=== PATIENT | male | born 1980 | race Caucasian/White ===

== ENCOUNTER 2024-02-16 08:32 | Inpatient (IN) | payer BC ==
[2024-02-16] VITALS (8 sets, daily range): BP systolic 141–196; BP diastolic 79–109; PULSE 60–81; RESP 18–19; TEMP 97.1–98.6; O2SAT 95–100
[~2024-02-16] VITALS: Ht 177.8 cm; Wt 103.4 kg
[2024-02-16 09:03] LABS: BASOPHILS % 0.6 % (0.0-1.0); EOSINOPHILS % 0.2 % (0.0-6.0); HEMATOCRIT 42.7 % (38.2-49.6); HEMOGLOBIN 15.5 g/dL (14.0-18.0); LYMPHOCYTES # (AUTO) 1.6 (1.0-3.2); LYMPHOCYTES % 24.2 % (18.0-39.1); MEAN CORPUSCULAR HEMOGLOBIN 32.6 pg (28-32); MEAN CORPUSCULAR HGB CONC 36.3 g/dL (31-35); MEAN CORPUSCULAR VOLUME 89.9 fL (81-99); MONOCYTES # (AUTO) 0.4 (0.2-0.8); MONOCYTES % 6.7 % (4.4-11.3); NEUTROPHILS # (AUTO) 4.5 (2.1-6.9); PLATELET COUNT 166 x10e3/uL (140-360); RED BLOOD COUNT 4.75 x10e6/uL (4.3-5.7); RED CELL DISTRIBUTION WIDTH 15.9 % (11.7-14.4)
[2024-02-16 09:09] LABS: INR 0.88; PROTHROMBIN TIME 12.4 seconds (11.9-14.5)
[2024-02-16 09:10] LABS: PARTIAL THROMBOPLASTIN TIME 45.4 seconds (23.8-35.5)
[2024-02-16 09:13] LABS: BILIRUBIN,URINE NEGATIVE (NEGATIVE); CLARITY,URINE CLEAR (CLEAR); COLOR,URINE YELLOW (YELLOW); GLUCOSE, URINE NEGATIVE (NEGATIVE); KETONES,URINE NEGATIVE (NEGATIVE); LEUKOCYTE ESTERASE ,URINE NEGATIVE (NEGATIVE); NITRITE,URINE NEGATIVE (NEGATIVE); PH,URINE 6.5 (5 - 7); PROTEIN,URINE DIPSTICK 1+ (NEGATIVE); URINE UROBILINOGEN 0.2 mg/dL (0.2 - 1)
[2024-02-16 09:14] LABS: AMPHETAMINES SCREEN,URINE NEGATIVE (NEGATIVE); BACTERIA,URINE FEW /HPF; BENZODIAZEPINES SCREEN,URINE NEGATIVE (NEGATIVE); CANNABINOIDS SCREEN,URINE NEGATIVE (NEGATIVE); EPITHELIAL CELLS,URINE FEW /LPF; METHADONE SCREEN, URINE NEGATIVE (NEGATIVE); OPIATES SCREEN,URINE NEGATIVE (NEGATIVE); PHENCYCLIDINE SCREEN,URINE NEGATIVE (NEGATIVE); RBC,URINE 0-5 /HPF (0-5); WBC,URINE (MAN) 0-5 /HPF (0-5)
[2024-02-16 09:15] LABS: ALBUMIN/GLOBULIN RATIO 1.4 (0.8-2.0); ANION GAP 20.9 mmol/L (8-16); CALCIUM 8.7 mg/dL (8.4-10.2); CREATININE, SERUM 1.04 mg/dL (0.72-1.25); MAGNESIUM 1.5 MG/DL (1.3-2.1); POTASSIUM 3.9 mmol/L (3.5-5.1); TOTAL PROTEIN 6.9 g/dL (6.5-8.1)
[2024-02-16 09:18] LABS: ACETAMINOPHEN < 3.0 ug/mL (10-30); ETHANOL < 10.0 mg/dL (0.0-10.0); SALICYLATE < 5.0 mg/dL (0-30)
[2024-02-16 09:21] LABS: TROPONIN I 0.054 ng/mL (0-0.300)
[2024-02-16] MEDS: SODIUM CHLORIDE 0.9% 1000ML 1,000 ML IV STA (09:23)
[2024-02-16] MEDS: ONDANSETRON HCL INJ 2MG/ML 2ML 2 MG/ML VIAL IV STA (09:23)
[2024-02-16] MEDS: CLONIDINE HCL 0.2 MG TAB PO ONE (09:23)
[2024-02-16] MEDS: THIAMINE HCL INJ 100 MG/ML 2ML VIAL IV ONE (09:27)
[2024-02-16] MEDS: LORAZEPAM INJ 2 MG/ML VIAL IV ONE (09:35)
[2024-02-16] MEDS ORDERED: IOPAMIDOL 370 MG/ML 100 ML INFUS..BTL INJ ONE (09:58)
[2024-02-16] MEDS ORDERED: ONDANSETRON HCL INJ 2MG/ML 2ML 2 MG/ML VIAL IV PRN (11:00)
[2024-02-16] MEDS: HYDRALAZINE HCL 20 MG/ML VIAL IV STA (11:02)
[2024-02-16] MEDS ORDERED: LORAZEPAM INJ 2 MG/ML VIAL IV PRN (11:15)
[2024-02-16] MEDS: FAMOTIDINE 20 MG/2 ML VIAL IV SCH (11:25)
[2024-02-16] MEDS: HYDRALAZINE HCL 20 MG/ML VIAL IV PRN (11:45)
[2024-02-16] MEDS: CHLORDIAZEPOXIDE HCL 25 MG CAP PO SCH (11:45)
[2024-02-16] MEDS: NICOTINE 14 MG/EA PATCH TOP ONE (17:19)
[2024-02-16] MEDS: METOPROLOL TARTRATE 25 MG TAB PO SCH (17:21)
[2024-02-16] MEDS: NICOTINE 21 MG/EA PATCH ONE (20:55)
[2024-02-17] VITALS (7 sets, daily range): BP systolic 157–178; BP diastolic 88–123; PULSE 55–82; RESP 18–20; TEMP 97.5–98.6; O2SAT 99–100
[2024-02-17] MEDS ORDERED: ZOLPIDEM TARTRATE 10 MG TAB PO PRN (06:30)
[2024-02-17 07:43] LABS: BASOPHILS % 0.6 % (0.0-1.0); EOSINOPHILS % 0.4 % (0.0-6.0); HEMATOCRIT 37.1 % (38.2-49.6); LYMPHOCYTES # (AUTO) 1.9 (1.0-3.2); LYMPHOCYTES % 34.4 % (18.0-39.1); MEAN CORPUSCULAR HEMOGLOBIN 32.7 pg (28-32); MEAN CORPUSCULAR VOLUME 93.2 fL (81-99); MONOCYTES # (AUTO) 0.4 (0.2-0.8); MONOCYTES % 6.8 % (4.4-11.3); NEUTROPHILS # (AUTO) 3.1 (2.1-6.9); NEUTROPHILS % 57.4 % (38.7-80.0); PLATELET COUNT 148 x10e3/uL (140-360); RED BLOOD COUNT 3.98 x10e6/uL (4.3-5.7); RED CELL DISTRIBUTION WIDTH 16.7 % (11.7-14.4); WHITE BLOOD COUNT 5.44 x10e3/uL (4.8-10.8)
[2024-02-17 08:17] LABS: TROPONIN I 0.069 ng/mL (0-0.300)
[2024-02-17 08:41] LABS: ALBUMIN 3.3 g/dL (3.5-5.0); ALBUMIN/GLOBULIN RATIO 1.4 (0.8-2.0); ANION GAP 15.3 mmol/L (8-16); CALCIUM 8.7 mg/dL (8.4-10.2); CHOL/HDL RATIO 10.1 (3.9-4.7); CREATININE, SERUM 0.8 mg/dL (0.72-1.25); POTASSIUM 4.3 mmol/L (3.5-5.1); TOTAL PROTEIN 5.6 g/dL (6.5-8.1)
[2024-02-17] MEDS: AMLODIPINE BESYLATE 10 MG TAB PO SCH (10:27)
[2024-02-17] MEDS: NICOTINE 14 MG/EA PATCH TOP SCH (10:28)
[2024-02-17] MEDS ORDERED: PRILOSEC OTC20 MG PO (10:35)
[2024-02-18] VITALS (8 sets, daily range): BP systolic 137–175; BP diastolic 81–110; PULSE 55–76; RESP 18–20; TEMP 97.6–98.4; O2SAT 97–100
[2024-02-18 05:11] LABS: BASOPHILS % 0.4 % (0.0-1.0); EOSINOPHILS % 0.4 % (0.0-6.0); HEMATOCRIT 39.2 % (38.2-49.6); HEMOGLOBIN 13.2 g/dL (14.0-18.0); LYMPHOCYTES # (AUTO) 1.6 (1.0-3.2); LYMPHOCYTES % 34.3 % (18.0-39.1); MEAN CORPUSCULAR HEMOGLOBIN 32.1 pg (28-32); MEAN CORPUSCULAR HGB CONC 33.7 g/dL (31-35); MEAN CORPUSCULAR VOLUME 95.4 fL (81-99); MONOCYTES # (AUTO) 0.3 (0.2-0.8); MONOCYTES % 7.2 % (4.4-11.3); NEUTROPHILS # (AUTO) 2.6 (2.1-6.9); NEUTROPHILS % 57.3 % (38.7-80.0); PLATELET COUNT 144 x10e3/uL (140-360); RED BLOOD COUNT 4.11 x10e6/uL (4.3-5.7); RED CELL DISTRIBUTION WIDTH 15.6 % (11.7-14.4)
[2024-02-18 05:32] LABS: ALBUMIN 3.3 g/dL (3.5-5.0); ALBUMIN/GLOBULIN RATIO 1.5 (0.8-2.0); ANION GAP 13.5 mmol/L (8-16); BILIRUBIN,TOTAL 1.8 mg/dL (0.2-1.2); CALCIUM 8.7 mg/dL (8.4-10.2); CREATININE, SERUM 0.84 mg/dL (0.72-1.25); POTASSIUM 4.5 mmol/L (3.5-5.1); TOTAL PROTEIN 5.5 g/dL (6.5-8.1)
[2024-02-18 06:05] LABS: TROPONIN I 0.068 ng/mL (0-0.300)
[2024-02-18] MEDS: IBUPROFEN 200 MG TAB PO PRN (09:39)
[2024-02-18] MEDS ORDERED: ONDANSETRON HCL 4 MG ORAL DISINTEGRATING TAB PO PRN (11:00)
[2024-02-19] VITALS: BP 147/76; PULSE 65; RESP 19; TEMP 97.5; O2SAT 97
[2024-02-19 06:14] VITALS: BP 157/97; PULSE 64; RESP 19; TEMP 97.3; O2SAT 99
[2024-02-19 08:30] VITALS: BP 157/97; PULSE 64; RESP 19; TEMP 97.3; O2SAT 99
[2024-02-19 08:54] VITALS: BP 147/83; PULSE 71; RESP 19; TEMP 98.8; O2SAT 100
== END 2024-02-19 08:58 | disposition home or self-care (01) | DRG 305 ==
LOC: ER 08:43 → ERHOLD 10:51 → MED/SURG 11:31
PROVIDERS: ADMIT Internal Medicine; ATTEND Internal Medicine
DX: I16.0 Hypertensive urgency (principal); I50.32 Chronic diastolic (congestive) heart failure; K76.0 Fatty (change of) liver, not elsewhere classified; I11.0 Hypertensive heart disease with heart failure; D64.9 Anemia, unspecified; F10.10 Alcohol abuse, uncomplicated; E78.5 Hyperlipidemia, unspecified; K21.9 Gastro-esophageal reflux disease without esophagitis; R79.89 Other specified abnormal findings of blood chemistry; F41.9 Anxiety disorder, unspecified; F32.A Depression, unspecified; Z11.52 Encounter for screening for COVID-19; E66.9 Obesity, unspecified; Z68.32 Body mass index [BMI] 32.0-32.9, adult; Z91.141 Patient's other noncompliance with medication regimen due to financial hardship; F17.210 Nicotine dependence, cigarettes, uncomplicated
CPT/HCPCS: 0223U; 36415; 70450; 71045; 74177; 80053; 80061; 80307; 80320; 80329; 81001; 82550; 83735; 83880; 84484; 85025; 85610; 85730; 93005; 93306; 99284; J0360; J2060; J2405; J3411; J7030; Q9967

== ENCOUNTER 2024-07-08 02:22 | Inpatient (IN) | payer BC ==
[~2024-07-08] VITALS: Ht 177.8 cm; Wt 103.4 kg
[~2024-07-08 02:22] MED LIST: PRILOSEC OTC20 MG PO
[2024-07-08 02:55] VITALS: TEMP 99.3
[2024-07-08] MEDS: DIAZEPAM INJ 5 MG/ML 2 ML IV ONE (03:25)
[2024-07-08] MEDS: SODIUM CHLORIDE 0.9% 1000ML 1,000 ML IV STA ×2 (03:26)
[2024-07-08] MEDS: FAMOTIDINE 20 MG/2 ML VIAL IV STA (03:26)
[2024-07-08 03:48] LABS: BASOPHILS % 0.1 % (0.0-1.0); EOSINOPHILS # (AUTO) 0.1 (0.0-0.4); EOSINOPHILS % 0.6 % (0.0-6.0); HEMATOCRIT 35.6 % (38.2-49.6); LYMPHOCYTES # (AUTO) 0.9 (1.0-3.2); LYMPHOCYTES % 10.6 % (18.0-39.1); MEAN CORPUSCULAR HEMOGLOBIN 34.5 pg (28-32); MEAN CORPUSCULAR HGB CONC 36.5 g/dL (31-35); MEAN CORPUSCULAR VOLUME 94.4 fL (81-99); MONOCYTES # (AUTO) 0.7 (0.2-0.8); MONOCYTES % 8.1 % (4.4-11.3); NEUTROPHILS # (AUTO) 7.1 (2.1-6.9); NEUTROPHILS % 79.9 % (38.7-80.0); PLATELET COUNT 128 x10e3/uL (140-360); RED BLOOD COUNT 3.77 x10e6/uL (4.3-5.7); RED CELL DISTRIBUTION WIDTH 14.5 % (11.7-14.4); WHITE BLOOD COUNT 8.81 x10e3/uL (4.8-10.8)
[2024-07-08 04:00] LABS: ETHANOL 58.7 mg/dL (0.0-10.0)
[2024-07-08 04:01] LABS: ALBUMIN/GLOBULIN RATIO 0.8 (0.8-2.0); ANION GAP 19.8 mmol/L (8-16); BILIRUBIN,TOTAL 1.6 mg/dL (0.2-1.2); CALCIUM 8.6 mg/dL (8.4-10.2); CREATININE, SERUM 0.84 mg/dL (0.72-1.25); POTASSIUM 3.8 mmol/L (3.5-5.1); TOTAL PROTEIN 6.7 g/dL (6.5-8.1)
[2024-07-08 04:07] LABS: TROPONIN I 0.046 ng/mL (0-0.300)
[2024-07-08] MEDS ORDERED: SODIUM CHLORIDE 0.9% 100 ML ONE (04:23)
[2024-07-08] MEDS ORDERED: IOPAMIDOL 370 MG/ML 100 ML INFUS..BTL INJ ONE (04:23)
[2024-07-08] MEDS: DIAZEPAM INJ 5 MG/ML 2 ML IV STA (05:03)
[2024-07-08 06:44] VITALS: PULSE 101; RESP 20
[2024-07-08 07:47] LABS: BASOPHILS % 0.1 % (0.0-1.0); EOSINOPHILS # (AUTO) 0.1 (0.0-0.4); HEMATOCRIT 32.2 % (38.2-49.6); HEMOGLOBIN 11.6 g/dL (14.0-18.0); LYMPHOCYTES # (AUTO) 1.2 (1.0-3.2); LYMPHOCYTES % 16.7 % (18.0-39.1); MEAN CORPUSCULAR HEMOGLOBIN 34.3 pg (28-32); MEAN CORPUSCULAR VOLUME 95.3 fL (81-99); MONOCYTES # (AUTO) 0.5 (0.2-0.8); MONOCYTES % 7.3 % (4.4-11.3); NEUTROPHILS # (AUTO) 5.5 (2.1-6.9); NEUTROPHILS % 74.5 % (38.7-80.0); PLATELET COUNT 93 x10e3/uL (140-360); RED BLOOD COUNT 3.38 x10e6/uL (4.3-5.7); RED CELL DISTRIBUTION WIDTH 14.7 % (11.7-14.4); WHITE BLOOD COUNT 7.36 x10e3/uL (4.8-10.8)
[2024-07-08 07:58] LABS: INR 1.07; PROTHROMBIN TIME 14.5 seconds (11.9-14.5)
[2024-07-08 08:00] LABS: PARTIAL THROMBOPLASTIN TIME 80.6 seconds (23.8-35.5)
[2024-07-08] MEDS: MAGNESIUM SULFATE 2GM/50ML 50 ML IV ONE (08:28)
[2024-07-08] MEDS: SODIUM CHLORIDE 0.9% 1000ML 1,000 ML IV SCH (08:28)
[2024-07-08] MEDS: ONDANSETRON HCL INJ 2MG/ML 2ML 2 MG/ML VIAL IV PRN (08:28)
[2024-07-08] MEDS ORDERED: IBUPROFEN400 MG PO (15:15)
[2024-07-08] MEDS ORDERED: LISINOPRIL-HCT1 EACH PO (15:19)
[2024-07-08] MEDS ORDERED: MULTIVITAMINS1 EAC8 PO (15:19)
[2024-07-08] MEDS ORDERED: PROBIOTIC & AC1 EACH PO (15:19)
[2024-07-08] MEDS ORDERED: METOPROLOL TART25 MG PO (15:19)
[2024-07-08 16:24] VITALS: BP 188/99; PULSE 98; RESP 18; TEMP 99; O2SAT 99
[2024-07-08 17:00] VITALS: BP 188/99; PULSE 98; RESP 18; TEMP 99; O2SAT 99
[2024-07-08] MEDS: GUAIFENESIN/DEXTROMETHORPHAN LIQD 5 ML UDC NG PRN (17:59)
[2024-07-08] MEDS: METOPROLOL TARTRATE 25 MG TAB PO SCH (18:00)
[2024-07-08] MEDS: HYDROCODONE/APAP 10MG-325MG TAB PO PRN (18:00)
[2024-07-08 19:45] VITALS: BP 174/107; PULSE 85; RESP 20; TEMP 99.1; O2SAT 98
[2024-07-08 21:00] VITALS: BP 174/107; PULSE 85; RESP 20; TEMP 99.1; O2SAT 98
[2024-07-08] MEDS ORDERED: FOLIC ACID 5 MG/ML VIAL ONE (21:11)
[2024-07-08] MEDS ORDERED: MULTIVITAMINS INJECTION ONE (21:11)
[2024-07-08] MEDS ORDERED: THIAMINE HCL INJ 100 MG/ML 2ML VIAL ONE (21:11)
[2024-07-08] MEDS: THIAMINE HCL INJ 100 MG/ML 2ML VIAL IV ONE (21:19)
[2024-07-08] MEDS: HYDRALAZINE HCL 20 MG/ML VIAL IV PRN (21:28)
[2024-07-08] MEDS: MULTIVITAMINS- 12 INJECTION 10 ML, FOLIC ACID MDV 1 MG, THIAMINE HCL INJ 100 MG in SODI... IV SCH (22:15)
[2024-07-08 22:26] LABS: % IRON SATURATION 55 % (15-50); IRON 103 ug/dL (65-175); TOTAL IRON BINDING CAPACITY 188 ug/dL (261-478); TRANSFERRIN 134 mg/dL (174-364)
[2024-07-08 23:04] LABS: FOLATE 6.6 ng/mL (7.0-15.4)
[2024-07-08] MEDS: METOCLOPRAMIDE HCL 10 MG/2ML VIAL IV SCH (23:38)
[2024-07-09] VITALS (10 sets, daily range): BP systolic 120–162; BP diastolic 71–101; PULSE 57–93; RESP 18–20; TEMP 97.9–98.7; O2SAT 95–100
[2024-07-09 06:30] LABS: BASOPHILS % 0.4 % (0.0-1.0); EOSINOPHILS % 0.4 % (0.0-6.0); HEMATOCRIT 29.5 % (38.2-49.6); HEMOGLOBIN 10.6 g/dL (14.0-18.0); LYMPHOCYTES # (AUTO) 1.4 (1.0-3.2); LYMPHOCYTES % 28.1 % (18.0-39.1); MEAN CORPUSCULAR HEMOGLOBIN 34.4 pg (28-32); MEAN CORPUSCULAR HGB CONC 35.9 g/dL (31-35); MEAN CORPUSCULAR VOLUME 95.8 fL (81-99); MONOCYTES # (AUTO) 0.3 (0.2-0.8); MONOCYTES % 5.9 % (4.4-11.3); NEUTROPHILS # (AUTO) 3.3 (2.1-6.9); NEUTROPHILS % 64.4 % (38.7-80.0); PLATELET COUNT 85 x10e3/uL (140-360); RED BLOOD COUNT 3.08 x10e6/uL (4.3-5.7); RED CELL DISTRIBUTION WIDTH 15.3 % (11.7-14.4); WHITE BLOOD COUNT 5.09 x10e3/uL (4.8-10.8)
[2024-07-09 07:08] LABS: ALBUMIN 2.3 g/dL (3.5-5.0); ALBUMIN/GLOBULIN RATIO 0.8 (0.8-2.0); ANION GAP 12.2 mmol/L (8-16); BILIRUBIN,TOTAL 1.4 mg/dL (0.2-1.2); CALCIUM 7.7 mg/dL (8.4-10.2); CREATININE, SERUM 0.72 mg/dL (0.72-1.25); TOTAL PROTEIN 5.2 g/dL (6.5-8.1)
[2024-07-09 07:31] LABS: POTASSIUM 3.2 mmol/L (3.5-5.1)
[2024-07-09] MEDS: HYDROCHLOROTHIAZIDE 25 MG TAB PO SCH (09:22)
[2024-07-09] MEDS: LACTOBACILLUS ACIDOPHILUS CAPSULE PO SCH (09:23)
[2024-07-09] MEDS: LISINOPRIL 20 MG TAB PO SCH (09:23)
[2024-07-09] MEDS: MULTIVITAMINS/MINERALS TAB PO SCH (09:23)
[2024-07-09] MEDS: DICYCLOMINE HCL 20 MG TAB PO SCH (09:23)
[2024-07-09] MEDS: THIAMINE HCL INJ 100 MG/ML 2ML VIAL IV SCH (09:24)
[2024-07-09 11:40] LABS: WBC,FECAL (FECAL LACTOFERRIN) POSITIVE (NEGATIVE)
[2024-07-09 12:34] LABS: CDIFF AG QUIK CHEK **POSITIVE** (NEGATIVE); CDIFF TOX QUIK CHEK NEGATIVE (NEGATIVE)
[2024-07-09] MEDS ORDERED: Vancomycin IV 1 GM in SODIUM CHLORIDE 0.9% 250ML 250 ML IV SCH (13:00)
[2024-07-09] MEDS: VANCOMYCIN HCL 125 MG CAPSULE PO SCH (14:00)
[2024-07-09 17:08] LABS: HEPATITIS A ANTIBODY IGM (P) Nonreactive; HEPATITIS B SURFACE AG (P) Nonreactive
[2024-07-09 17:09] LABS: HEPATITIS B CORE IGM (P) Nonreactive; HEPATITIS C ANTIBODY Nonreactive
[2024-07-09] MEDS: MELATONIN 5 MG TABLET PO PRN (21:19)
[2024-07-10] VITALS (7 sets, daily range): BP systolic 153–166; BP diastolic 89–101; PULSE 65–85; RESP 18–20; TEMP 98.2–98.4; O2SAT 94–100
[2024-07-10 05:52] LABS: BASOPHILS % 0.2 % (0.0-1.0); HEMATOCRIT 31.4 % (38.2-49.6); HEMOGLOBIN 11.3 g/dL (14.0-18.0); LYMPHOCYTES # (AUTO) 1.7 (1.0-3.2); LYMPHOCYTES % 33.3 % (18.0-39.1); MEAN CORPUSCULAR HEMOGLOBIN 34.1 pg (28-32); MEAN CORPUSCULAR VOLUME 94.9 fL (81-99); MONOCYTES # (AUTO) 0.3 (0.2-0.8); MONOCYTES % 5.5 % (4.4-11.3); NEUTROPHILS # (AUTO) 3.1 (2.1-6.9); NEUTROPHILS % 60.4 % (38.7-80.0); RED BLOOD COUNT 3.31 x10e6/uL (4.3-5.7); RED CELL DISTRIBUTION WIDTH 15.8 % (11.7-14.4); WHITE BLOOD COUNT 5.08 x10e3/uL (4.8-10.8)
[2024-07-10 05:55] LABS: PLATELET COUNT 93 x10e3/uL (140-360)
[2024-07-10 06:17] LABS: ALBUMIN 2.5 g/dL (3.5-5.0); ALBUMIN/GLOBULIN RATIO 0.7 (0.8-2.0); ANION GAP 14.6 mmol/L (8-16); BILIRUBIN,TOTAL 1.4 mg/dL (0.2-1.2); CALCIUM 8.3 mg/dL (8.4-10.2); CREATININE, SERUM 0.71 mg/dL (0.72-1.25); MAGNESIUM 1.3 MG/DL (1.3-2.1); POTASSIUM 3.6 mmol/L (3.5-5.1); TOTAL PROTEIN 5.9 g/dL (6.5-8.1)
[2024-07-10] MEDS ORDERED: PROPOFOL IV EMULSION 50 ML IV ONE (09:27)
[2024-07-10] MEDS ORDERED: FENTANYL CITRATE/PF 100MCG/2 ML INJ ONE (10:04)
[2024-07-10] MEDS ORDERED: METOCLOPRAMIDE HCL 10 MG/2ML VIAL ONE (10:23)
[2024-07-10] MEDS: FOLIC ACID/CYANOCOB/PYRIDOXINE TAB PO SCH (11:11)
[2024-07-10] MEDS: SUCRALFATE 1 GM/10 ML SUSP PO SCH (11:30)
[2024-07-11 03:26] VITALS: BP 163/97; PULSE 73; RESP 18; TEMP 98.7; O2SAT 99
[2024-07-11 06:06] LABS: BASOPHILS % 0.4 % (0.0-1.0); EOSINOPHILS % 0.2 % (0.0-6.0); HEMOGLOBIN 10.2 g/dL (14.0-18.0); LYMPHOCYTES # (AUTO) 1.6 (1.0-3.2); LYMPHOCYTES % 34.4 % (18.0-39.1); MONOCYTES # (AUTO) 0.4 (0.2-0.8); MONOCYTES % 8.9 % (4.4-11.3); NEUTROPHILS # (AUTO) 2.5 (2.1-6.9); NEUTROPHILS % 55.2 % (38.7-80.0); PLATELET COUNT 90 x10e3/uL (140-360); RED CELL DISTRIBUTION WIDTH 15.6 % (11.7-14.4)
[2024-07-11 06:31] LABS: ALBUMIN 2.3 g/dL (3.5-5.0); ALBUMIN/GLOBULIN RATIO 0.8 (0.8-2.0); ANION GAP 12.4 mmol/L (8-16); BILIRUBIN,TOTAL 1.1 mg/dL (0.2-1.2); CREATININE, SERUM 0.7 mg/dL (0.72-1.25); MAGNESIUM 1.2 MG/DL (1.3-2.1); TOTAL PROTEIN 5.3 g/dL (6.5-8.1)
[2024-07-11 06:33] LABS: POTASSIUM 3.4 mmol/L (3.5-5.1)
[2024-07-11 08:00] VITALS: BP 155/88; PULSE 68; RESP 18; TEMP 98.3; O2SAT 100
[2024-07-11 09:00] VITALS: BP 155/88; PULSE 68; RESP 18; TEMP 98.3; O2SAT 100
[2024-07-11 11:49] VITALS: BP 157/99; PULSE 64; RESP 18; TEMP 98.4; O2SAT 100
[2024-07-11 16:00] VITALS: BP 165/98; PULSE 68; RESP 18; TEMP 98.4; O2SAT 97
[2024-07-11 20:00] VITALS: BP 158/99; PULSE 66; RESP 18; TEMP 98.2; O2SAT 100
[2024-07-12] VITALS: BP 176/97; PULSE 67; RESP 18; TEMP 98; O2SAT 100
[2024-07-12 04:00] VITALS: BP 164/97; PULSE 63; RESP 18; TEMP 98.2; O2SAT 99
[2024-07-12 08:25] VITALS: BP 183/107; PULSE 71; RESP 19; TEMP 98.1; O2SAT 99
[2024-07-12 11:31] VITALS: BP 158/99; PULSE 66; RESP 18; TEMP 98.2; O2SAT 100
[2024-07-12] MEDS: MULTIVITAMINS- 12 INJECTION 10 ML, FOLIC ACID MDV 1 MG, THIAMINE HCL INJ 100 MG in SODI... IV SCH (12:00)
[2024-07-12 12:06] VITALS: BP 189/94; PULSE 64; RESP 20; TEMP 98; O2SAT 100
== END 2024-07-12 12:57 | disposition home or self-care (01) | DRG 371 ==
LOC: ER 02:48 → ERHOLD 06:08 → MED/SURG2 14:26
PROVIDERS: ADMIT Internal Medicine; ATTEND Internal Medicine
PROC: 0DB78ZX Excision of Stomach, Pylorus, Via Natural or Artificial Opening Endoscopic, Diagnostic (ICD-10-PCS; principal; 2024-07-10 10:02)
DX: A04.72 Enterocolitis due to Clostridium difficile, not specified as recurrent (principal); K22.6 Gastro-esophageal laceration-hemorrhage syndrome; K29.50 Unspecified chronic gastritis without bleeding; K44.9 Diaphragmatic hernia without obstruction or gangrene; K21.00 Gastro-esophageal reflux disease with esophagitis, without bleeding; F10.120 Alcohol abuse with intoxication, uncomplicated; Y90.2 Blood alcohol level of 40-59 mg/100 ml; K70.10 Alcoholic hepatitis without ascites; F17.200 Nicotine dependence, unspecified, uncomplicated; I16.0 Hypertensive urgency; I10 Essential (primary) hypertension; E86.0 Dehydration; E87.6 Hypokalemia; D64.9 Anemia, unspecified; D69.6 Thrombocytopenia, unspecified; K83.8 Other specified diseases of biliary tract; E66.01 Morbid (severe) obesity due to excess calories; Z68.32 Body mass index [BMI] 32.0-32.9, adult; F41.9 Anxiety disorder, unspecified; Z71.41 Alcohol abuse counseling and surveillance of alcoholic; Z79.899 Other long term (current) drug therapy
CPT/HCPCS: 36415; 43239; 74174; 74181; 76705; 80053; 80320; 82550; 82607; 82728; 82746; 83540; 83630; 83690; 83735; 83993; 84466; 84484; 85025; 85045; 85610; 85730; 87045; 87177; 87324; 87449; 88305; 88312; 88342; 93005; 99284; J0360; J2405; J2470; J2765; J3360; J3411; J3475; J7030; J7050; Q9967